=== PATIENT | female | born 1945 | race Caucasian/White ===

== ENCOUNTER → 2017-03-25 | Outpatient (CLI) | payer MEDICARE, BC ==
[~2017-03-25] MED LIST: ACET-822 PO; ALLO100T PO; AMAR2TAB PO; AMBI5TAB PO; APIX5TAB PO; ASPI81TA11 PO; ASPI81TA82 PO; ATOR1TAB18 PO; CALC1TAB23 PO; CALCTAB19 PO; CARV3.125 PO; CARV6.252 PO; COZA50TA PO; DESL5TAB11 PO; DIPH25CA PO; FURO20TA PO; GLIM2TAB PO; HYDR-3516 PO; HYDR-3580 PO; LASI20TA PO; LOSA25TA PO; MULTTAB67 PO; PERC5TAB12 PO; PRAV80 PO; RIVA10 PO; TAB-TAB PO; Z.0.COMMODE-3:1; ZOLP10TA3 PO
[2017-03-25 13:14] LABS: HEMATOCRIT 34.7 % (35.0-46.0); MEAN CELL VOLUME 93.1 FL (80.0-100.0); MEAN CORPUSCULAR HEMOGLOBIN 29.5 PG (27.0-34.0); MEAN CORPUSCULAR HGB CONC 31.7 % (32.0-36.0); PLATELET COUNT 152 TH/MM3 (150-450); RED BLOOD COUNT 3.73 MIL/MM3 (4.00-5.30); RED CELL DISTRIBUTION WIDTH 16.5 % (11.6-17.2); REVIEW FLAG FINAL; WHITE BLOOD COUNT 6.9 TH/MM3 (4.0-11.0)
[2017-03-25 13:23] LABS: BICARBONATE 28.1 MEQ/L (21.0-32.0); POTASSIUM 5.3 MEQ/L (3.5-5.1)
--- NOTE | 2017-03-25 14:40 | RADRPT ---
EXAM DATE/TIME: 03/25/2017 13:34 [place] COMPARISON: No previous studies available for comparison. INDICATIONS : Evaluate for pneumonia,pneumothorax or communicable disease. Preop chest for carotid artery surgery o n03/29/17 MEDICAL HISTORY : Cardiovascular disease. SURGICAL HISTORY : CABG. ICD ENCOUNTER: Initial ACUITY: 1 day PAIN SCORE: 0/10 LOCATION: Bilateral chest FINDINGS: Single lead AICD device with battery pack in the left mid thorax. No significant focal pleural or par enchymal opacities. Median sternotomy wires and postsurgical features of prior cardiac surgery. Cardi omediastinal contours are within normal limits. Postsurgical features of lower cervical fixation. Bon y thorax grossly intact. CONCLUSION: 1. No acute cardiopulmonary disease. Ed Collins MD on March 25, 2017 at 14:37 Board Certified Radiologist. This report was verified electronically.
== END ==
LOC: CPRE 12:18
PROVIDERS: ATTEND Surgery
DX: Z01.812 Encounter for preprocedural laboratory examination (principal); Z01.811 Encounter for preprocedural respiratory examination; I65.23 Occlusion and stenosis of bilateral carotid arteries
CPT/HCPCS: 36415; 71020; 80048; 85027

== ENCOUNTER 2017-03-29 08:00 | Inpatient (IN) | payer MEDICARE, BC ==
[~2017-03-29] VITALS: Ht 165.1 cm; Wt 102.9 kg
[~2017-03-29 08:00] MED LIST changes: -AMAR2TAB PO; -AMBI5TAB PO; -ASPI81TA82 PO; -CALC1TAB23 PO; -CARV3.125 PO; -COZA50TA PO; -DESL5TAB11 PO; -HYDR-3580 PO; -LASI20TA PO; -PERC5TAB12 PO; -PRAV80 PO; -RIVA10 PO; -TAB-TAB PO; -Z.0.COMMODE-3:1
[2017-03-29] MEDS ORDERED: METOPROLOL TARTRATE 25 MG TAB PO PRN (08:30)
[2017-03-29] MEDS ORDERED: CHLORHEXIDINE GLUCONATE 2 % 1 PACK (2 CLOTHS) TOPICAL PRN (08:30)
[2017-03-29] MEDS ORDERED: INSULIN HUMAN REGULAR 1,000 UNITS/10 ML VIAL SQ PRN (08:30)
[2017-03-29] MEDS ORDERED: POVIDONE IODINE 5% (ANTISEPSIS KIT) 4 APPLICATIONS EACH NARE PRN (08:30)
[2017-03-29] MEDS ORDERED: SODIUM CHLORID 0.9% 500 ML IV PRN (08:30)
[2017-03-29] MEDS ORDERED: LACTATED RINGER'S 1000 ML IV PRN (08:30)
[2017-03-29] MEDS ORDERED: LACTATED RINGER'S 1000 ML INJ 1,000 ML IV ONE (12:00)
[2017-03-29] MEDS ORDERED: SODIUM CHLOR 0.9% 250 ML INJ 250 ML IV ONE (12:00)
[2017-03-29] MEDS ORDERED: SODIUM CHLORID 0.9% 500 ML INJ 500 ML IV ONE (12:00)
[2017-03-29] MEDS ORDERED: NORMOSOL R INJ 2,000 ML IV ONE (12:00)
[2017-03-29] MEDS ORDERED: NEOSTIGMINE 3 MG/3 ML SYR IV ONE (12:00)
[2017-03-29] MEDS ORDERED: PROPOFOL 200 MG/20 ML AMP IV ONE (12:00)
[2017-03-29] MEDS ORDERED: PHENYLEPHRINE HCL 10 MG/ML VIAL IV ONE (12:00)
[2017-03-29] MEDS ORDERED: FAMOTIDINE 20 MG/2 ML VIAL ONE (12:58)
[2017-03-29] MEDS ORDERED: ACETAMINOPHEN 1000 MG/100 ML 100 ML IV ONE (12:58)
[2017-03-29] MEDS ORDERED: MIDAZOLAM HCL 2 MG/2 ML VIAL ONE (12:58)
[2017-03-29] MEDS ORDERED: DEXAMETHASONE SOD PHOS 4 MG/ML VIAL ONE (12:58)
[2017-03-29] MEDS ORDERED: BUPIVACAINE HCL PF 0.5% 30 ML VIAL ONE (13:16)
[2017-03-29] MEDS ORDERED: ceFAZolin INJ 1,000 MG VIAL ONE (13:16)
[2017-03-29] MEDS ORDERED: HEPARIN SODIUM - IV 10,000 UNITS/10 ML VIAL ONE (13:16)
[2017-03-29] MEDS ORDERED: THROMBIN (TOPICAL) 20,000 UNIT SPRAY KIT ONE (13:17)
[2017-03-29] MEDS ORDERED: LIDOCAINE HCL 1% 20 ML VIAL ONE (13:17)
[2017-03-29] MEDS ORDERED: PROTAMINE SULFATE 50 MG/5 ML VIAL ONE (13:17)
[2017-03-29] MEDS ORDERED: niCARdipine INJ 25 MG in SODIUM CHLOR 0.9% 250 ML INJ 250 ML IV PRN (16:02)
[2017-03-29] MEDS ORDERED: PHENYLEPHRINE INJ 40 MG in DEXTROSE 5% IN WATE 500 ML INJ 496 ML IV PRN ×2 (16:02)
--- NOTE | 2017-03-29 16:08 | HHI.PR ---
Immediate Post Op Note Procedure Date: Mar 29, 2017 Pre Op Diagnosis: (1) Carotid artery narrowing Post Op Diagnosis: (1) Carotid artery narrowing Surgeon: Darrick Pena Belt Repairer(s): Bhavik Rehman Procedure: Left CEA Findings: High Grade left Carotid Stenosis Additional Information: NA Complications: None Specimen(s) removed: Left ICA plaque Estimated blood loss: less than 50 cc Anesthesia: General Drains: None Fluids: One Liter IVF Tourniquet time (min at mmHg) NA Patient to: PACU Patient Condition: Good Implant/Devices: Other Date/Time of Procedure: Other Darrick Pena DO Mar 29, 2017 16:08
[2017-03-29] MEDS ORDERED: MAGNESIUM HYDROXIDE SUSP 30 ML CUP PO PRN (16:15)
[2017-03-29] MEDS ORDERED: SODIUM CHLORIDE 0.9% FLUSH 5 ML FLUSH IV FLUSH PRN (16:15)
[2017-03-29] MEDS ORDERED: ONDANSETRON HCL 4 MG/2 ML VIAL IV PUSH PRN (16:15)
[2017-03-29] MEDS ORDERED: DEXTROSE 50% IN WATER 50 ML VIAL(D50) IV PUSH PRN (16:15)
[2017-03-29] MEDS ORDERED: oxyCODONE/ACETAMINOPHEN 10 MG/325 MG TAB PO PRN (16:15)
[2017-03-29] MEDS ORDERED: MORPHINE SULFATE 4 MG/ML INJ IV PUSH PRN (16:15)
[2017-03-29] MEDS ORDERED: GLUCAGON 1 MG/ML VIAL OTHER PRN (16:15)
[2017-03-29] MEDS ORDERED: oxyCODONE/ACETAMINOPHEN 5 MG/325 MG TAB PO PRN (16:15)
[2017-03-29] MEDS ORDERED: Post-op Orders (for Pharmacy) MISC OTHER ONE (16:15)
[2017-03-29] MEDS ORDERED: DO NOT ADM ANY ANTICOAGULANT DRUGS PRN (16:35)
[2017-03-29] MEDS: SODIUM CHLOR 0.9% 1000 ML INJ 1,000 ML IV SCH (17:40)
[2017-03-29 18:30] VITALS: BP 144/54; PULSE 78; RESP 18; TEMP 97.7; O2SAT 94
[2017-03-29 20:00] VITALS: BP 152/60; PULSE 76; RESP 19; TEMP 97.6; O2SAT 93
[2017-03-29] MEDS: SODIUM CHLORIDE 0.9% FLUSH 5 ML FLUSH IV FLUSH SCH (20:14)
[2017-03-29] MEDS ORDERED: PANTOPRAZOLE SODIUM 40 MG VIAL IV PUSH SCH (21:00)
[2017-03-29] MEDS ORDERED: PANTOPRAZOLE SOD 40 MG DELAYED RELEASE TAB PO SCH (21:00)
[2017-03-29 22:00] VITALS: PULSE 65
[2017-03-29] MEDS: ceFAZolin 2 GM PREMIX 50 ML IV SCH (22:22)
[2017-03-29 23:21] VITALS: O2SAT 95
--- NOTE | 2017-03-29 23:26 | MP ---
cc: MADI PENA DATE OF SURGERY 03/29/17 PREOPERATIVE DIAGNOSIS High-grade critical stenosis left internal carotid artery. POSTOPERATIVE DIAGNOSIS High-grade critical stenosis left internal carotid artery. PROCEDURE Left carotid endarterectomy SURGEON Dr. Preethi Pena ENTERPRISE APPLICATION ADMINISTRATOR Fei Rehman ANESTHESIA General with neuro monitoring IV FLUIDS One liter crystalloid. ESTIMATED BLOOD LOSS Less than 50 mL URINE OUTPUT Not calculated. COMPLICATIONS None DISPOSITION TO PACU PROCEDURE IN DETAIL The patient's left neck was prepped and draped in sterile fashion. I used a scalpel and electrocautery to make an incision along the anterior border of the sternocleidomastoid. It was approximately 5-6 cm in length from the sternal notch towards the tragus of the ear posteriorly. I dissected down through the platysma muscle and then posteriorly through the sternocleidomastoid. It should be noted that the internal jugular vein did not appear to be atretic as it approached the carotid bifurcation. Then we used multiple 2-0 ties and 4-0 small and medium clips as needed in order to ligate side branch of the facial confluence. The patient had a high carotid bifurcation so I mobilized the hypoglossal nerve by dividing the occipital artery with 2-0 silks. I controlled the superior thyroid artery with a 2-0 silk as a vessel loop. I mobilized the internal, common and external carotid arteries placing vessel loops around the internal and external and tourniquet around the common. We did use neuro monitoring. There was baseline no change in the amplitude of the ECG tracings. I waited until the ACT was greater than 200 and then placed a clamp on the internal then external then common carotid arteries. I used an 11-blade and Pete scissors to make my arteriotomy. I used a [place] and plaque removers in order to remove the plaque. I was able to remove a calcified plaque at the bulb that was nearly occlusive. It should be noted that the patient had a fairly large internal carotid artery and felt like placement of patch would make the carotid artery redundant. I did irrigate the back wall and I did not feel I had any flaps. I closed the two 5-0 and a BBI and then applied a clamp on the internal and then forward bled the common and then back bled the external carotid arteries. It should be noted that there was no change in neuro monitoring before or after releasing my clamp at the end of the case. Doppler signals after the case were more diastolic for the internal and more resistant in the external carotid artery. I did use FloSeal and Surgicel to help out with hemostasis. I closed in layers with a 2-0 and 3-0 Vicryl and 4-0 Monocryl stitch and used Dermabond over the skin. The patient will be awakened and neurological status will be assessed before sending to the PACU. DO DARRYL Ray/ /3:57 PM /11:08 PM
[2017-03-30] VITALS (8 sets, daily range): BP systolic 105–142; BP diastolic 46–63; PULSE 56–86; RESP 13–26; TEMP 97.5–98.2; O2SAT 95–97
[2017-03-30] MEDS: ACETAMINOPHEN 325 MG TAB PO PRN ×3 (00:32→13:08)
[2017-03-30] MEDS: SODIUM CHLOR 0.9% 1000 ML INJ 1,000 ML IV SCH (05:17)
[2017-03-30] MEDS: ceFAZolin 2 GM PREMIX 50 ML IV SCH ×2 (05:17→14:00)
[2017-03-30 05:57] LABS: AUTOMATED NEUTROPHIL # 7.5 TH/MM3 (1.8-7.7); BASOPHIL % 0.3 % (0.0-2.0); HEMATOCRIT 31.1 % (35.0-46.0); HEMO FLAGS DIFF FINAL; LYMPH % 8.2 % (9.0-44.0); LYMPHOCYTE # 0.7 TH/MM3 (1.0-4.8); MEAN CELL VOLUME 93.6 FL (80.0-100.0); MEAN CORPUSCULAR HEMOGLOBIN 30.3 PG (27.0-34.0); MEAN CORPUSCULAR HGB CONC 32.4 % (32.0-36.0); MONO % 3.7 % (0.0-8.0); NEUT % 87.8 % (16.0-70.0); PLATELET COUNT 148 TH/MM3 (150-450); RED BLOOD COUNT 3.32 MIL/MM3 (4.00-5.30); RED CELL DISTRIBUTION WIDTH 16.8 % (11.6-17.2); WHITE BLOOD COUNT 8.5 TH/MM3 (4.0-11.0)
[2017-03-30 06:26] LABS: ANION GAP 8 MEQ/L (5-15); AST (GOT) 23 U/L (15-37); BICARBONATE 24.5 MEQ/L (21.0-32.0); BLOOD UREA NITROGEN 30 MG/DL (7-18); CHLORIDE 106 MEQ/L (98-107); GLOMERULAR FILTRATION RATE 37 ML/MIN (>89); POTASSIUM 4.9 MEQ/L (3.5-5.1); SODIUM (NA) 138 MEQ/L (136-145)
[2017-03-30 06:27] LABS: ALT (GPT) 20 U/L (10-53)
[2017-03-30 06:29] LABS: ALKALINE PHOSPHATASE 57 U/L (45-117); TOTAL BILIRUBIN ADULT 1.1 MG/DL (0.2-1.0)
--- NOTE | 2017-03-30 07:35 | HHI.CCPN ---
Subjective Remarks/Hospital Course 71 y/o woman day 1 s/p uneventful left carotid endarterectomy for high grade stenosis. Moves 4 limbs with 5/5 strength. Oriented X 3, alert cooperative, speech clear. Followed last night for blood pressure control without any issues. Normal postop course, She looks great this morning. Formal consult not necessary. Objective Vital Signs Date Time Temp Pulse Resp B/P (MAP) Pulse Ox O2 Delivery O2 Flow Rate FiO2 03/30/17 06:00 72 03/30/17 04:00 98.2 13 128/46 (73) 97 03/29/17 23:21 Nasal Cannula 2.00 Intake and Output 03/30/17 03/30/17 03/30/17 07:59 15:59 23:59 Intake Total 1644 ml Output Total 725 ml Balance 919 ml Result Diagram: 03/30/17 0520 03/30/17 0520 Luis Harmon MD Mar 30, 2017 07:35
[2017-03-30] MEDS: SODIUM CHLORIDE 0.9% FLUSH 5 ML FLUSH IV FLUSH SCH (08:52)
[2017-03-30] MEDS ORDERED: ASPIRIN EC 81 MG TABEC PO SCH (09:00)
--- NOTE | 2017-03-30 10:24 | PD.VS.PN ---
Subjective POD #: 1 Procedure(s): L CEA Subjective/Hospital Course Pt sitting in chair eating breakfast w/o difficulty Pain controlled Pt reported frontal "sinus headache" this am that was relieved with ice and Tylenol Pt reported a hx of "sinus hedaches" Pt with nasal congestion Pt with left sided lip deficit, hx of (Sylvie Knight) Objective Vitals/I&O Date Time Temp Pulse Resp B/P (MAP) Pulse Ox O2 Delivery O2 Flow Rate FiO2 03/30/17 08:00 56 03/30/17 08:00 97.7 77 20 95 136/58 (84) 03/30/17 07:00 94 Room Air 03/30/17 06:00 72 03/30/17 04:00 66 03/30/17 04:00 98.2 66 13 128/46 (73) 97 03/30/17 02:00 76 03/30/17 00:00 98.0 86 26 142/56 (84) 97 03/30/17 00:00 86 03/29/17 23:21 95 Nasal Cannula 2.00 03/29/17 22:00 65 03/29/17 20:00 97.6 76 19 152/60 (90) 93 03/29/17 20:00 76 03/29/17 19:00 Nasal Cannula 2.00 03/29/17 18:30 97.7 78 18 144/54 (84) 94 Automatic Cuff 03/29/17 18:15 97.8 74 18 131/63 (85) 93 Room Air 154/64 (94) 03/29/17 18:00 71 18 129/65 (86) 93 Room Air 144/57 (86) 03/29/17 17:45 70 18 130/64 (86) 95 Room Air 150/61 (90) 03/29/17 17:30 70 18 131/74 (93) 95 Room Air 139/57 (84) 03/29/17 17:15 66 18 125/60 (81) 100 Nasal Cannula 2 139/57 (84) 03/29/17 17:00 65 18 119/60 (79) 99 Nasal Cannula 2 136/56 (82) 03/29/17 16:45 62 18 93/47 (62) 99 Nasal Cannula 2 03/29/17 16:33 97.5 64 18 109/53 (71) 99 Nasal Cannula 2 132/70 (90) 03/30/17 03/30/17 03/30/17 07:00 15:00 23:00 Intake Total 1644 ml Output Total 725 ml Balance 919 ml Exam: GENERAL: A&OX3, NAD,GCS15 SKIN: Warm and dry. NECK: left neck incision intact with surgical glue, pt w/o r/d, mild swelling present with ecchymosis near the incision line CARDIOVASCULAR: +S1,S2 RESPIRATORY: CTA/No accessory muscle use. Pt denies any new onset visual/speech deficits or unilateral weakness episodes Laboratory Laboratory Tests Test 03/30/17 05:20 White Blood Count 8.5 Red Blood Count 3.32 Hemoglobin 10.1 Hematocrit 31.1 Mean Corpuscular Volume 93.6 Mean Corpuscular Hemoglobin 30.3 Mean Corpuscular Hemoglobin Concent 32.4 Red Cell Distribution Width 16.8 Platelet Count 148 Mean Platelet Volume 9.0 Neutrophils (%) (Auto) 87.8 Lymphocytes (%) (Auto) 8.2 Monocytes (%) (Auto) 3.7 Eosinophils (%) (Auto) 0.0 Basophils (%) (Auto) 0.3 Neutrophils # (Auto) 7.5 Lymphocytes # (Auto) 0.7 Monocytes # (Auto) 0.3 Eosinophils # (Auto) 0.0 Basophils # (Auto) 0.0 CBC Comment DIFF FINAL Differential Comment Blood Urea Nitrogen 30 Creatinine 1.39 Random Glucose 144 Total Protein 5.7 Albumin 3.3 Calcium Level 8.4 Alkaline Phosphatase 57 Aspartate Amino Transf (AST/SGOT) 23 Alanine Aminotransferase (ALT/SGPT) 20 Total Bilirubin 1.1 Sodium Level 138 Potassium Level 4.9 Chloride Level 106 Carbon Dioxide Level 24.5 Anion Gap 8 Estimat Glomerular Filtration Rate 37 (Sylvie Knight) Assessment and Plan Assessment: (1) Hypertension Status: Chronic (2) Diabetes mellitus Status: Chronic (3) Congestive heart failure Status: Chronic (4) Carotid artery narrowing Status: Acute (5) Carotid artery disease without cerebral infarction Status: Acute (6) Primary localized osteoarthrosis of the knee Status: Chronic Plan Pt with a hx Left sided carotid stenosis Pt s/p POD 1 L CEA Pt doing well this am Pt c/o "sinus headache" this am and is w/o any new onset neurological deficits Plan D/C MIVF D/C planning (this afternoon) Continue to monitor for any new onset neurological deficits Sylvie BAXTER [facility] [phone] Discharge Planning this afternoon (Sylvie Knight) Plan I agree with above A/P after exam of the patient. Plan for restart of eloquis next week. Discharge later today if no headaches. Darrick Pena DO, FACS (Darrick Pena DO) Sylvie Knight Mar 30, 2017 10:24 Darrick Pena DO Mar 30, 2017 14:22
[2017-03-30] MEDS ORDERED: ACETAMINOPHEN/HYDROcodone 325 MG/5 MG TAB PO PRN (10:30)
--- NOTE | 2017-03-30 11:31 | PD.VS.DC ---
Discharge Summary Admission Date: Mar 29, 2017 at 08:00 Discharge Date: Mar 30, 2017 Admission Diagnosis: (1) Congestive heart failure (2) Carotid artery narrowing (3) Diabetes mellitus (4) Hypertension (5) Carotid artery disease without cerebral infarction (6) Primary localized osteoarthrosis of the knee Discharge Diagnosis: (1) Hypertension ICD Codes: I10 - Hypertension Status: Chronic (2) Diabetes mellitus ICD Codes: E11.9 - Diabetes mellitus Status: Chronic (3) Congestive heart failure ICD Codes: I50.9 - Congestive heart failure Status: Chronic (4) Carotid artery narrowing ICD Codes: I65.29 - Occlusion and stenosis of unspecified carotid artery Status: Acute (5) Carotid artery disease without cerebral infarction ICD Codes: I77.9 - Disorder of arteries and arterioles, unspecified Status: Acute (6) Primary localized osteoarthrosis of the knee ICD Codes: M17.10 - Primary localized osteoarthrosis of the knee Status: Chronic Brief History from admission Ms.Arkinis vasques pleasant 70 y.o., , femalewithAsymptomatic carotid artery stenosis. This has been followed for about 5 years. She has been on Eliquis for about more than ayr and was on aspirin before this. She has about a known stenosis of her left ICA of 70% that appears to have increased with duplex US follow up at 6 months. Procedure(s): L CEA Significant Findings GENERAL: A&OX3, NAD,GCS15 SKIN: Warm and dry. NECK: left neck incision intact with surgical glue, pt w/o r/d, mild swelling present with ecchymosis near the incision line CARDIOVASCULAR: +S1,S2 RESPIRATORY: CTA/No accessory muscle use. Pt denies any new onset visual/speech deficits or unilateral weakness episodes Pt with known Left sided lip deficit, hx of (w/o change) Laboratory Tests Test 03/30/17 05:20 Red Blood Count 3.32 MIL/MM3 (4.00-5.30) Hemoglobin 10.1 GM/DL (11.6-15.3) Hematocrit 31.1 % (35.0-46.0) Platelet Count 148 TH/MM3 (150-450) Neutrophils (%) (Auto) 87.8 % (16.0-70.0) Lymphocytes (%) (Auto) 8.2 % (9.0-44.0) Lymphocytes # (Auto) 0.7 TH/MM3 (1.0-4.8) Blood Urea Nitrogen 30 MG/DL (7-18) Creatinine 1.39 MG/DL (0.50-1.00) Random Glucose 144 MG/DL (74-106) Total Protein 5.7 GM/DL (6.4-8.2) Albumin 3.3 GM/DL (3.4-5.0) Calcium Level 8.4 MG/DL (8.5-10.1) Total Bilirubin 1.1 MG/DL (0.2-1.0) Estimat Glomerular Filtration Rate 37 ML/MIN (>89) Hospital Course: Ms.Arkinis vasques pleasant 70 y.o., , femalewithAsymptomatic carotid artery stenosis. She has about a known stenosis of her left ICA of 70% that appears to have increased with duplex US follow up at 6 months. Left CEA done on 03/29/17 w.o complications Pt is w/o any new neurological deficits Discharge Condition: Good Discharge Disposition: Discharge Home Discharge Instructions: F/u in our out patient clinic on 05/04/17 at 3PM May Shower tomorrow AM NO TUB baths, swimming or submerging in an ocean until incision is fully healed Do not apply creams or ointments to surgical incision as it may loosen the surgical glue Leave incision open to air Call the office to report any new onset increased redness, drainage or swelling May apply a warm compress to incision for swelling NO driving for 2-3W Hold Eliquis until next week Call the office with any questions or concerns Sylvie BAXTER [employer] [phone] Any questions or concerns: Call [facility] [phone] Sylvie Knight Mar 30, 2017 11:31
[2017-03-30] MEDS ORDERED: PERC5TAB12 PO (14:33)
[2017-03-30] MEDS ORDERED: CARVEDILOL 6.25 MG TAB PO SCH (21:00)
[2017-03-30] MEDS ORDERED: ATORVASTATIN 80 MG TAB PO SCH (21:00)
[2017-03-31] MEDS ORDERED: LOSARTAN 25 MG TAB PO SCH (09:00)
== END 2017-03-30 16:08 | disposition home or self-care (01) | DRG 38 ==
LOC: HSDI 08:00 → N03B 18:28
PROVIDERS: ADMIT Surgery; ATTEND Surgery
PROC: 03CL0Z6 (ICD-10-PCS; principal; 2017-03-29 13:04)
DX: I65.22 Occlusion and stenosis of left carotid artery (principal); I13.0 Hypertensive heart and chronic kidney disease with heart failure and stage 1 through stage 4 chronic kidney disease, or unspecified chronic kidney disease; E11.22 Type 2 diabetes mellitus with diabetic chronic kidney disease; E11.42 Type 2 diabetes mellitus with diabetic polyneuropathy; I50.9 Heart failure, unspecified; E78.5 Hyperlipidemia, unspecified; Z95.810 Presence of automatic (implantable) cardiac defibrillator; Z86.73 Personal history of transient ischemic attack (TIA), and cerebral infarction without residual deficits; N18.9 Chronic kidney disease, unspecified; F41.9 Anxiety disorder, unspecified; F32.9 Major depressive disorder, single episode, unspecified; G44.89 Other headache syndrome; M17.10 Unilateral primary osteoarthritis, unspecified knee; M10.9 Gout, unspecified
CPT/HCPCS: 80053; 82948; 85025; 86850; 86900; 86901; 88304; 88311; C1768; J0131; J0690; J1100; J1644; J2250; J2370; J2710; J2720; J3010; J7030; J7040; J7050; J7120